=== PATIENT | male | born 1955 | race African-American/Black ===

== ENCOUNTER 2017-02-24 02:00 | Inpatient (IN) | payer OTHER ==
--- NOTE | ~2017-02-24 | DS ---
Unit #: [id number] #: [id number] Patient: RICARDO CARTER [id number] [facility] [address] [place] [address] [id number] MR#: [id number] NAME: RICARDO CARTER. ROOM: [facility] Age: 61 Sex: M Admission Date: 02/24/2017 : 1955 Discharge Date: 03/03/2017 Attending Physician: Shane Rivas M.D. Primary Care Physician: Reed Phillips M.D. DISCHARGE SUMMARY REASON FOR ADMISSION Mr. Carter is a 61-year-old man with a history of schizophrenia who came to the emergency room reporting his medication was not working and that he was erratically compliant. He had auditory hallucinations to kill himself as well as nonspecific homicidal ideation toward other people. He was readmitted for stabilization. LABORATORY Please see hospital chart. HOSPITAL COURSE Patient was admitted and placed on suicide precautions. Zyprexa 10 mg at bedtime for psychosis was reinitiated and the patient tolerated this well with no adverse side effects or problems. He participated appropriately in reality based psychotherapy groups and activities and worked with his social media developer regarding his followup at [facility]. He was cooperative with staff and made no suicidal gestures or statements on the unit. He was able to contract for safety on the date of discharge. DISCHARGE DIAGNOSIS AXIS I: Schizophrenia paranoid type. AXIS II: No diagnosis. AXIS III: None. INSTRUCTION TO THE PATIENT Follow up with [facility] mental health care. DISCHARGE MEDICATIONS Zyprexa 15 mg at bedtime for schizophrenia. CONDITION ON DISCHARGE Improved PROGNOSIS Fair to good. DIET AND ACTIVITY Per primary care doctor Dictated by... Shane Rivas M.D. [facility]/lukas Unit #: [id number] #: [id number] Patient: RICARDO CARTER TD: 05/05/2017 01:03 JOB #: [id number] DISCHARGE SUMMARY Page 1 of 1 X Shane Rivas MD X DISCHARGE SUMMARY
--- NOTE | ~2017-02-24 | PA ---
Unit #: [id number] #: [id number] Patient: RICARDO CARTER [id number] [facility] [address] [place] [address] [id number] MR#: [id number] NAME: RICARDO CARTER. ROOM: [facility] Age: 61 Sex: M Admission Date: 02/24/2017 : 1955 Date of Assessment: 02/25/2017 Attending Physician: Shane Rivas M.D. Admitting Physician: Shane Rivas M.D. Primary Care Physician: Reed Phillips M.D. PSYCHIATRIC ASSESSMENT DATE OF SERVICE 02/25/2017 INFORMANTS The patient, reliable. [facility], reliable. [facility], reliable. CHIEF COMPLAINT Auditory hallucinations and suicidal ideation. HISTORY OF PRESENT ILLNESS Mr. Carter is a 61-year-old man with a history of schizophrenia, who reports he has erratic compliance with his medication and states he would act on the voices that are telling him to self-harm as well as harm anyone he can with whatever weapon he could find. He was unable to contract for safety and was admitted for assessment and stabilization. PAST PSYCHIATRIC HISTORY Previous admission in 08/2016 with previous admissions at [facility]. FAMILY PSYCHIATRIC HISTORY The family denied history of mental illness or substance abuse. SOCIAL HISTORY Please see previous assessments. PAST MEDICAL HISTORY No chronic medical problems. MEDICATIONS None currently. ALLERGIES Haldol, lithium, risperidone, Thorazine, and Mellaril. SUBSTANCE USE HISTORY None reported. MENTAL STATUS EXAMINATION The patient presented as a thin man, appearing older than his stated age. He was cooperative with the examination. Speech was sparse, but easily understood. Musculoskeletal examination was calm. Mood was depressed with a flat affect. He was alert and fully oriented. Memory and Unit #: [id number] #: [id number] Patient: RICARDO CARTER concentration were fair. Thought processes appeared psychotic and generally well organized, but responsive to internal stimuli with command suicidal content. He also reported nonspecific homicidal ideation. Insight and judgment were fair. Fund of knowledge and abstraction were fair. ASSETS AND LIABILITIES The patient has income and is connected with caregivers. Liabilities include noncompliance, lack of housing, and support. ADMITTING DIAGNOSES AXIS I: Schizophrenia, paranoid type. AXIS II: No diagnosis. AXIS III: None acute. AXIS IV: AXIS V: PSYCHIATRIC PLAN The patient was admitted and placed on suicide and psychosis precautions. Zyprexa will be restarted for control of psychosis and he will have a physical examination and baseline laboratory studies as indicated. TREATMENT GOALS Resolution of SI, resolution of psychosis, improvement in insight, and improvement in coping skills. DISCHARGE PLANNING Follow up with [facility]. ESTIMATED LENGTH OF STAY 5 days. Dictated by... Shane Rivas M.D. [facility]/jayson TD: 05/05/2017 04:43 JOB #: [id number] PSYCHIATRIC ASSESSMENT Page 1 of 1 X Shane Rivas MD X PSYCHIATRIC ASSESSMENT
--- NOTE | ~2017-02-24 | HP ---
Unit #: [id number] #: [id number] Patient: MATTHEW CARTER [id number] [place] [address] [id number] MR#: [id number] NAME: MATTHEW CARTER. ROOM: [facility] Age: 61 Sex: M Admission Date: 02/24/2017 : 1955 Attending Physician: Shane Rivas M.D. Admitting Physician: Shane Rivas M.D. Primary Care Physician: Reed Phillips M.D. HISTORY AND PHYSICAL HISTORY OF PRESENT ILLNESS Matthew is a 61 year old admitted to [facility] with psychotic behavior. He is a poor historian so his history is taken from his chart. PAST MEDICAL HISTORY Nothing significant. PAST SURGICAL HISTORY Nothing known. ALLERGIES Haldol, lithium, Risperdal, Thorazine, Mellaril. SOCIAL HISTORY He does not smoke. Drinks alcohol on occasion and has a history of marijuana use. FAMILY HISTORY Medically noncontributory. REVIEW OF SYSTEMS He does not answer questions appropriately. There are no reports of nausea, vomiting or diarrhea. He has had no cough or increased temperature. CURRENT MEDICATIONS 1. Zyprexa 10 mg q.h.s. 2. Milk of Magnesia p.r.n. 3. Maalox p.r.n. 4. Tylenol p.r.n. 5. Nicotine patch 14 mg daily. PHYSICAL EXAMINATION GENERAL: Alert, well-nourished, in no apparent distress. VITAL SIGNS: Blood pressure 134/78, heart rate 80, respirations 16, temperature 98.6. WEIGHT: 150. HEIGHT: 6 feet 0 inches. SKIN: Warm and dry without rash or lesion. HEENT: Normocephalic. TMs not viewed. Oral and nasal passages clear. Conjunctivae clear. PERRLA. EOMs intact. NECK: Supple without lymphadenopathy or thyromegaly. HEART: Regular rate and rhythm without murmur. Unit #: [id number] #: [id number] Patient: MATTHEW CARTER LUNGS: Clear. ABDOMEN: Soft, nontender. : Not done. EXTREMITIES: No evidence of cyanosis, clubbing or edema. Moves all without focal deficit. NEUROLOGICAL: Grossly within normal limits. Cranial Nerves: II: Visual evans are intact. III, IV AND : Extraocular movements are intact. Pupils are equal, round and reactive to light. V: Facial sensation is grossly normal. VII: Facial movements and expression are normal. VIII: Auditory acuity grossly intact. IX, X: Uvula is midline. Phonation is normal. XI: Patient shrugs shoulders and turns head normally. XII: Tongue protrudes in the midline. Sensory and Motor Function: Sensory and motor sensation is grossly normal. Motor: moves all extremities well. Coordination: Gait is normal. Deep Tendon Reflexes: Intact. IMPRESSION Psychiatric admission. RECOMMENDATIONS PSYCHIATRIC: Per psychiatrist. MEDICAL: See no contraindications to participate in facility's activities. MEDICAL PROGNOSIS Good. MEDICAL CONDITION Stable. Dictated by... Red BuitragoAJaziel. for Maggy Flores/danyel TD: 02/24/2017 16:02 JOB #: [id number] HISTORY AND PHYSICAL Page 1 of 1 X Lashon Grijalva X HISTORY AND PHYSICAL
[2017-02-25 10:51] LABS: BASOPHIL% 0.6 % (0-2.5); EOSINOPHIL# 0.1 X10e3 (0-0.7); EOSINOPHIL% 3.2 % (0.0-7.0); HEMATOCRIT 38.9 % (38.0-50.0); HEMOGLOBIN 12.2 gm/dL (13.0-16.0); LYMPHOCYTE# 1.4 X10e3 (1.0-3.5); LYMPHOCYTE% 31.6 % (17.0-45.0); MEAN CELL VOLUME 75.8 FL (83-96); MEAN CORPUSCULAR HEMOGLOBIN 23.8 PG (28-34); MEAN CORPUSCULAR HGB CONC 31.3 g/dL (30-36); MEAN PLATELET VOLUME 8.4 FL (6.5-11.5); MONOCYTE# 0.6 X10e3 (0-1.0); MONOCYTE% 12.9 % (3.0-12.0); NEUTROPHIL# 2.3 X10e3 (1.5-7.1); NEUTROPHIL% 51.7 % (40-75); PLATELET COUNT 198 X10e3 (140-420); RED BLOOD COUNT 5.14 X10e (3.90-5.60); RED CELL DISTRIBUTION WIDTH 15.7 % (11.0-15.5); WHITE BLOOD COUNT 4.5 X10e3 (4.0-10.5)
[2017-02-25 11:02] LABS: DIFF IND NO
[2017-02-25 11:43] LABS: ALBUMIN SERUM 3.6 g/dL (3.5-5.0); BILIRUBIN,TOTAL 0.4 mg/dL (0.2-2.0); BUN/CREATININE RATIO 21.11; CALCIUM SERUM 8.9 mg/dL (8.4-10.2); CREATININE SERUM 0.9 mg/dL (0.6-1.4); GLOM FILT RATE Estimated 107.2 mL/min (>60); POTASSIUM 4.4 mmol/L (3.5-5.1); PROTEIN TOTAL SERUM 6.6 g/dL (6.0-8.3)
[2017-02-27 12:54] LABS: AMPHETAMINE NEG (NEG); BARBITURATES NEG (NEG); BENZODIAZEPINES NEG (NEG); COCAINE POS (NEG); MARIJUANA NEG (NEG); OPIATES NEG (NEG); TRICYCLIC ANTIDEPRESSANTS NEG (NEG); U METHADONE NEG (NEG)
== END 2017-03-03 14:20 | disposition home or self-care (01) | DRG 885 ==
LOC: P1E 08:46 → P1S 08:46
PROVIDERS: Psychiatry & Neurology Psychiatry
DX: F20.0 Paranoid schizophrenia (principal); F17.210 Nicotine dependence, cigarettes, uncomplicated; Z88.5 Allergy status to narcotic agent; Z88.8 Allergy status to other drugs, medicaments and biological substances
CPT/HCPCS: 80053; 80307; 85025